=== PATIENT | female | born 2000 | race Caucasian/White ===

== ENCOUNTER 2023-09-19 17:34 | Emergency (ER) | payer OTHER ==
[2023-09-19 18:20] VITALS: BP 108/61; PULSE 56; RESP 18; TEMP 97.9; BMI 23.1
[2023-09-19 20:56] LABS: BASO % 0.4 % (0-2.0); EOS % 1.9 % (0-4.5); HEMATOCRIT 37.1 % (32.4-45.2); HEMOGLOBIN 12.2 GM/dL (10.7-15.3); LYMPH % 29.7 % (8-40); MCH 29.5 pg (25.7-33.7); MEAN CELL VOLUME 89.5 fl (80-96); MEAN PLT VOLUME 10.1 fl (7.5-11.1); MONO % 7.2 % (3.8-10.2); NEUT % 60.8 % (42.8-82.8); PLATELET COUNT 276 10^3/uL (134-434); RBC 4.15 M/mm3 (3.60-5.2); RDW 14.4 % (11.6-15.6); WHITE BLOOD COUNT 8.1 K/mm3 (4.0-10.0)
[2023-09-19 21:08] LABS: CHLORIDE 107 mmol/L (98-107); INR 1.07 (0.83-1.09); PROTHROMBIN TIME (PATIENT) 12.4 SEC (9.7-13.0); SODIUM 139 mmol/L (136-145)
[2023-09-19 21:10] LABS: ANION GAP 5 mmol/L (4-13); CALCIUM 9.1 mg/dL (8.5-10.1); CO2 27 mmol/L (21-32); GLUCOSE,RANDOM 90 mg/dL (74-106)
[2023-09-19 21:11] LABS: ACTIVATED PTT 29.8 SECONDS (25.2-36.5); ALBUMIN 3.8 g/dl (3.4-5.0); BLOOD UREA NITROGEN 11.7 mg/dL (7-18)
[2023-09-19 21:13] LABS: SGOT/AST 23 U/L (15-37); SGPT/ALT 27 U/L (13-61)
[2023-09-19 21:14] LABS: CREATININE 0.6 mg/dL (0.55-1.3)
[2023-09-19 21:15] LABS: BILIRUBIN,TOTAL 0.3 mg/dL (0.2-1); TOT PROT 7.2 g/dl (6.4-8.2)
[2023-09-19 21:16] LABS: ALK PHOS 45 U/L (45-117)
[2023-09-19 22:33] LABS: PH,URINE 6.5 (5.0-8.0); URINE APPEARANCE CLEAR; URINE BILIRUBIN NEGATIVE (NEGATIVE); URINE COLOR YELLOW; URINE GLUCOSE (UA) 2+ (NEGATIVE); URINE KETONE 1+ (NEGATIVE); URINE LEUK ESTERASE NEGATIVE (NEGATIVE); URINE NITRITE NEGATIVE (NEGATIVE); URINE PROTEIN NEGATIVE (NEGATIVE)
== END 2023-09-19 23:58 | disposition home or self-care (01) ==
LOC: JER 17:34
DX: N83.201 Unspecified ovarian cyst, right side (principal)
CPT/HCPCS: 36415; 76830-TC; 80053; 81003; 84702; 85025; 85610; 85730; 86850; 86900; 86901; 87086; 99284-25